=== PATIENT | female | born 1955 | race Caucasian/White ===

== ENCOUNTER → 2018-09-04 | Outpatient (CLI) | payer BC ==
[~2018-09-04] MED LIST: ADVAIR 100-501 EACH; NORCO 5-325 TA1 EACH PO
== END ==
LOC: RAD 08:44
DX: Z12.31 Encounter for screening mammogram for malignant neoplasm of breast (principal)

== ENCOUNTER → 2019-11-07 | Outpatient (CLI) | payer OTHER, BC | LOC: BC 13:14 | DX: Z12.31 Encounter for screening mammogram for malignant neoplasm of breast (principal) ==